=== PATIENT | female | born 1995 | race Two or more races ===

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

== ENCOUNTER 2020-10-26 14:08 | Emergency (ER) | payer OTHER ==
[2020-10-26 14:21] VITALS: BMI 22.6
[2020-10-26] MEDS ORDERED: DOXYCYCLINE HYCLATE 100 MG CAPSULE PO ONE ×2 (15:35→15:45)
[2020-10-26] MEDS ORDERED: metroNIDAZOLE 500 MG TABLET PO ONE (15:36)
[2020-10-26] MEDS ORDERED: metroNIDAZOLE 250 MG TABLET ONE (15:45)
[2020-10-26] MEDS ORDERED: cefTRIAXone SODIUM 1 GM VIAL ONE (15:46)
[2020-10-26 15:49] LABS: BASO % 0.4 % (0-2.0); EOS % 0.6 % (0-4.5); HEMATOCRIT 43.1 % (32.4-45.2); HEMOGLOBIN 14.4 GM/dL (10.7-15.3); LYMPH % 15.1 % (8-40); MCH 31.7 pg (25.7-33.7); MCHC 33.4 g/dl (32.0-36.0); MEAN CELL VOLUME 94.8 fl (80-96); MEAN PLT VOLUME 11.1 fl (7.5-11.1); MONO % 8.1 % (3.8-10.2); NEUT % 75.8 % (42.8-82.8); PLATELET COUNT 222 K/MM3 (134-434); RBC 4.55 M/mm3 (3.60-5.2); RDW 13.3 % (11.6-15.6); WHITE BLOOD COUNT 9.6 K/mm3 (4.0-10.0)
[2020-10-26 16:09] LABS: ALBUMIN 4.4 g/dl (3.4-5.0); CALCIUM 9.5 mg/dL (8.5-10.1)
[2020-10-26 16:10] LABS: BLOOD UREA NITROGEN 8.4 mg/dL (7-18)
[2020-10-26 16:13] LABS: CREATININE 0.7 mg/dL (0.55-1.3)
[2020-10-26 16:14] LABS: BILIRUBIN,TOTAL 0.9 mg/dL (0.2-1); TOT PROT 7.9 g/dl (6.4-8.2)
[2020-10-26 16:52] LABS: EPI CELLS 20 /uL (0-25.1); HYALINE CASTS 5 /uL (0-3.1); PH,URINE 6.5 (5.0-8.0); URINE APPEARANCE CLEAR; URINE BACTERIA 60 /uL (0-1359); URINE BILIRUBIN NEGATIVE (NEGATIVE); URINE COLOR DK YELLOW; URINE GLUCOSE (UA) NEGATIVE (NEGATIVE); URINE KETONE TRACE (NEGATIVE); URINE LEUK ESTERASE TRACE (NEGATIVE); URINE NITRITE NEGATIVE (NEGATIVE); URINE PROTEIN TRACE (NEGATIVE); URINE RBC 5 /uL (0-23.9); URINE WBC 51 /uL (0-25.8)
[2020-10-26 17:02] LABS: HCG,QUALITATIVE URINE Negative
[2020-10-26] MEDS ORDERED: ACETAMINOPHEN 1000 MG/100 ML VIAL (NON FORMULARY) IVPB ONE (18:01)
[2020-10-26] MEDS ORDERED: ACETAMINOPHEN INJECTION 100 ML IVPB ONE (18:16)
[2020-10-26 22:23] VITALS: BP 120/72; PULSE 80
[2020-10-27 18:34] LABS: HIV INTERPRETATION NEGATIVE (NEGATIVE)
== END 2020-10-26 22:24 | disposition home or self-care (01) ==
LOC: JER 14:08
PROC: 3E0333Z Introduction of Anti-inflammatory into Peripheral Vein, Percutaneous Approach (ICD-10-PCS; principal; 2020-10-26)
PROC: 3E02329 Introduction of Other Anti-infective into Muscle, Percutaneous Approach (ICD-10-PCS; 2020-10-26)
DX: A64 Unspecified sexually transmitted disease (principal); N89.8 Other specified noninflammatory disorders of vagina; R10.2 Pelvic and perineal pain
CPT/HCPCS: 36415; 74177-TC; 76830-TC; 80053; 81003; 84703; 85025; 86780; 87077; 87086; 87389; 87491; 87591; 99285-25; J0131; Q9967

== ENCOUNTER 2023-08-12 14:09 | Emergency (ER) | payer OTHER ==
[2023-08-12 15:06] VITALS: BP 125/72; PULSE 102; RESP 19; TEMP 102.3; BMI 26.4
[2023-08-12] MEDS ORDERED: IBUPROFEN 400 MG TABLET (FP) PO ONE (16:27)
[2023-08-12] MEDS: IBUPROFEN 400 MG TABLET (FP) PO ONE (16:32)
== END 2023-08-12 16:47 | disposition home or self-care (01) ==
LOC: JERFT 14:09 → JER 14:09
DX: R09.81 Nasal congestion (principal); R05.9 Cough, unspecified; M79.10 Myalgia, unspecified site; R50.9 Fever, unspecified; R53.83 Other fatigue; J06.9 Acute upper respiratory infection, unspecified; Z20.822 Contact with and (suspected) exposure to COVID-19
CPT/HCPCS: 0241U-QW; 99283-25